=== PATIENT | female | born 1975 | race African-American/Black ===

== ENCOUNTER 2017-01-31 08:01 | Emergency (ER) | payer MEDICAID, OTHER ==
[~2017-01-31] VITALS: Ht 167.6 cm; Wt 99.8 kg
[~2017-01-31 08:01] MED LIST: NKM; PROTONIX40 MG ORAL
[2017-01-31 08:31] VITALS: BP 153/90
--- NOTE | 2017-01-31 08:41 | Emergency Room Report ---
History of Present Illness General Chief Complaint: Pain Source: Patient Present Illness HPI [id number] with 2 months foot pain. Pain to balls of foot, worse with standing, walking. Works on her feet all day No actual trauma to feet/ankles Has been diagnosed previously with lymphadema Denies fever/chills Denies calf pain/swelling Allergies: Coded Allergies: No Known Allergies (Unverified , 03/27/12) Patient History Past Medical History: other - lymphadema Past Surgical History: none Pertinent Family History: none Social History: Denies: alcohol use, drug use, smoking Now: No Immunizations: UTD Reviewed Nursing Documentation: PMH: Agreed, PSxH: Agreed Nursing Documentation-PMH Past Medical History: No Stated History Review of Systems All Other Systems: negative except mentioned in HPI Physical Exam Vital Signs Date Time Temp Pulse Resp B/P Pulse Ox O2 Delivery O2 Flow Rate FiO2 01/31/17 08:08 98.1 88 20 153/90 100 Room Air Sp02 EP Interpretation: reviewed, normal General Appearance: normal inspection, well appearing, no apparent distress, alert, GCS 15, non-toxic Head: normocephalic, atraumatic Eyes: bilateral eye EOMI, bilateral eye PERRL ENT: normal ENT inspection, hearing grossly normal, normal voice Neck: normal inspection, full range of motion, supple, no bony tend Respiratory: normal inspection, lungs clear, normal breath sounds, no respiratory distress, no retraction, no wheezing Cardiovascular #1: regular rate, rhythm, no edema Genitourinary: no CVA tenderness Musculoskeletal: normal inspection, back normal, normal range of motion, Senthil' s Sign negative, other - Bilateral feet: mild non-pititng edema. Tttp bilaterally to balls of feet. No warmth or erythema Neurologic: normal inspection, alert, oriented x3, responsive, pony edger III-XII nml as tested, motor strength/tone normal, speech normal Psychiatric: normal inspection, judgement/insight normal, mood/affect normal Skin: normal inspection, normal color, no rash Medical Decision Making Diagnostic Impression: Primary Impression: Bilateral foot pain ER Course 2 months duration VSS. Afebrile. Atraumatic No calf ttp - low suspicion for DVT No cellulitis Stress fx vs plantar fasciitis? Xrays: No acute fx or spurs Has Podiatry appointment in 5 days DC home RICE Other X-Ray Diagnostic Results Other X-Ray Diagnostic Results : X-Ray ordered: Right foot # of Views/Limited Vs Complete: 3 View Indication: Pain EP Interpretation: Yes Interpretation: no dislocation, no soft tissue swelling, no fractures Impression: No acute disease Interpreting ER Provider: Electronically signed by Dr Sierra PA Scribe Text Left foot 3 views ED review No acute fx, dislocation or soft tissue swelling Last Vital Signs Date Time Temp Pulse Resp B/P Pulse Ox O2 Delivery O2 Flow Rate FiO2 01/31/17 08:31 98.1 88 20 153/90 100 Room Air Status: improved Disposition: HOME, SELF-CARE Referrals: [facility],REFERRING (PCP) YAZ SIERRA M.D. Jan 31, 2017 08:41
[2017-01-31 09:46] VITALS: BP 146/85
[2017-01-31 09:50] VITALS: BP 146/85
--- NOTE | 2017-02-01 09:45 | Diagnostic Imaging Report ---
Indication: PAIN Technique: 3 views right foot Comparison: none Findings: There is mild metatarsus adductus. No acute fractures. No dislocations. There is mild pes cavus deformity. Impression: Negative This agrees with the preliminary interpretation provided by the emergency room physician
--- NOTE | 2017-02-01 09:46 | Diagnostic Imaging Report ---
Indication: PAIN Technique: 3 views left foot Comparison: none Findings: No acute fractures. No dislocations. The joint spaces are preserved. There is a small calcaneal spur Impression: Negative
== END 2017-01-31 09:51 | disposition home or self-care (01) ==
LOC: EMR 08:31
DX: M79.672 Pain in left foot (principal); M79.671 Pain in right foot
CPT/HCPCS: 99283

== ENCOUNTER 2018-09-11 22:38 | Emergency (ER) | payer OTHER ==
[~2018-09-11] VITALS: Ht 193 cm; Wt 104.3 kg
[2018-09-11 23:12] VITALS: BP 117/71
--- NOTE | 2018-09-11 23:13 | NUR ---
ED Nurse Note: Urine sample collected and sent to lab.
--- NOTE | 2018-09-11 23:13 | NUR ---
ED Nurse Note: Patient presents to ED c/o vaginal burning and burning sensation during urination for 2 weeks. Patient reports 8/10 pain. Patient AOx4, VSS, ambulatory with steady gait, no s/s of acute distress noted at this time. Patient seen by MAIRA at bedside.
[2018-09-11 23:57] LABS: APPEARANCE,URINE CLEAR; BILIRUBIN, URINE NEGATIVE (NEGATIVE); COLOR,URINE PALE YELLOW; GLUCOSE, URINE (UA) NEGATIVE (NEGATIVE); KETONES,URINE NEGATIVE (NEGATIVE); LEUKOCYTE ESTERASE ,URINE 2+ (NEGATIVE); NITRITE,URINE NEGATIVE (NEGATIVE); PH,URINE 5 (4.5-8.0); PROTEIN,URINE NEGATIVE (NEGATIVE); UROBILINOGEN,URINE NORMAL MG/DL (0.0-1.0)
[2018-09-12] MEDS ORDERED: metroNIDAZOLE 500mg tab ORAL ONE (00:45)
--- NOTE | 2018-09-12 01:38 | Emergency Room Report ---
History of Present Illness General Chief Complaint: Female Urogenital Problems Source: Patient Present Illness HPI Patient presents with vaginal irritation and discharge. She denies dysuria. She does not think she is . Has had this problem in the past. She rates the pain 8/10. Of fevers, chills, nausea, vomiting, diarrhea no joint pain headache or rashes. Allergies: Coded Allergies: No Known Allergies (Unverified , 03/27/12) Patient History Past Medical History: see triage record Social History: Reports: smoking Social History Narrative Caregiver Last Menstrual Period: Sep 07 2018 Now: No Reviewed Nursing Documentation: PMH: Agreed; PSxH: Agreed Nursing Documentation-PMH Hx Hypertension: Yes Review of Systems All Other Systems: negative except mentioned in HPI Physical Exam Vital Signs Date Time Temp Pulse Resp B/P (MAP) Pulse Ox O2 Delivery O2 Flow Rate FiO2 09/11/18 22:49 98.2 86 19 117/71 95 Room Air Sp02 EP Interpretation: reviewed, normal General Appearance: well appearing, no apparent distress Head: normocephalic, atraumatic Eyes: bilateral eye normal inspection, bilateral eye PERRL ENT: hearing grossly normal, normal voice, moist mucus membranes Neck: full range of motion, supple Respiratory: lungs clear, no respiratory distress, speaking full sentences Cardiovascular #1: normal peripheral pulses, regular rate, rhythm Cardiovascular #2: 2+ radial (R) Gastrointestinal: non tender, soft, overweight Genitourinary: no CVA tenderness, other - Michael discharge present Musculoskeletal: digits/nails normal, gait/station normal, normal range of motion Neurologic: alert, normal gait, grossly normal Psychiatric: mood/affect normal Skin: no rash Medical Decision Making Diagnostic Impression: Primary Impression: Trichomonal infection Additional Impression: UTI (urinary tract infection) Qualified Codes: N30.00 - Acute cystitis without hematuria ER Course Patient presents with vaginal discharge. Differential includes bacterial vaginosis, urinary tract infection amongst others. Wet mount is sent along with urinalysis Urinalysis with pyuria and trichomonas. Flagyl and Macrobid were given. Discussed with patient her significant other might need treatment also. Patient stable for outpatient observation and treatment. Laboratory Tests Test 09/11/18 23:05 Urine Color Pale yellow Urine Appearance Clear Urine pH 5 (4.5-8.0) Urine Specific [place] 1.015 (1.005-1.035) Urine Protein Negative (NEGATIVE) Urine Glucose (UA) Negative (NEGATIVE) Urine Ketones Negative (NEGATIVE) Urine Blood 1+ (NEGATIVE) H Urine Nitrite Negative (NEGATIVE) Urine Bilirubin Negative (NEGATIVE) Urine Urobilinogen Normal MG/DL (0.0-1.0) Urine Leukocyte Esterase 2+ (NEGATIVE) H Urine RBC 10-15 /HPF (0 - 2) H Urine WBC 10-15 /HPF (0 - 2) H Urine Squamous Epithelial Cells Many /LPF (NONE/OCC) H Urine Bacteria Moderate /HPF (NONE) H Urine Trichomonas Moderate /HPF (NONE) H Urine HCG, Qualitative Negative (NEGATIVE) Microbiology Date/Time Source Procedure Growth Status 09/12/18 00:30 Vaginal Wet Prep - Final Complete Last Vital Signs Date Time Temp Pulse Resp B/P (MAP) Pulse Ox O2 Delivery O2 Flow Rate FiO2 09/12/18 01:53 98.2 81 26 124/74 97 Room Air Status: improved Disposition: HOME, SELF-CARE Condition: Improved Scripts Nitrofurantoin Monohyd/M-Cryst* (MACROBID 100 MG*) 100 Mg Capsule 100 MG ORAL EVERY 12 HOURS, #14 CAP Prov: Jj Huang MD 09/12/18 Metronidazole* (FLAGYL*) 500 Mg Tablet 500 MG ORAL EVERY 8 HOURS, #20 TAB Prov: Jj Huang MD 09/12/18 Referrals: [facility]/,REFERRING (PCP) Jj Huang MD Sep 12, 2018 01:38
[2018-09-12] MEDS ORDERED: NITROFURANTOIN100 M2 ORAL (01:40)
[2018-09-12] MEDS ORDERED: FLAGYL500 MG ORAL (01:40)
[2018-09-12 01:49] VITALS: BP 124/74
--- NOTE | 2018-09-12 01:50 | NUR ---
ED Nurse Note: Patient cleared for discharge by ERMDamian. Patient AOx4, VSS, ambulatory with steady gait, no s/s of acute distress noted at this time. patient provided with discharge instructions and medication prescriptions. patient verbalized understanding. patient took all personal belongings with her. Patient stated she was driving herself home. patient instructed to follow up with OBGYN in 3 to 5 days.
[2018-09-12 01:53] VITALS: BP 124/74
== END 2018-09-12 01:54 | disposition home or self-care (01) ==
LOC: EMR 23:05
DX: A59.9 Trichomoniasis, unspecified (principal); N39.0 Urinary tract infection, site not specified; I10 Essential (primary) hypertension
CPT/HCPCS: 81003; 81025; 87086; 87210; 99283

== ENCOUNTER 2019-06-06 13:36 | Emergency (ER) | payer OTHER ==
[~2019-06-06] VITALS: Ht 182.9 cm; Wt 104.3 kg
[~2019-06-06 13:36] MED LIST changes: +FLAGYL500 MG ORAL; +NITROFURANTOIN100 M2 ORAL
[2019-06-06] MEDS ORDERED: VOLTAREN100 G1 TP (14:51)
[2019-06-06] MEDS ORDERED: IBU800 MG PO (14:51)
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
[2019-06-06] MEDS ORDERED: TRIAMCINOLONE A15 G1 TP (14:54)
[2019-06-06] MEDS ORDERED: CLOTRIMAZOLE30 GM TP (14:54)
[2019-06-06 14:59] VITALS: BP 128/80
[2019-06-06 15:03] VITALS: BP 125/85
--- NOTE | 2019-06-06 15:15 | Diagnostic Imaging Report ---
Indication: Trauma, pain Technique: 3 views of the right knee Comparison: None Findings: Bony alignment is normal. There are medial patellofemoral osteophytes. No acute fractures. No dislocations. No suprapatellar effusion Impression: No acute bony trauma
--- NOTE | 2019-06-06 15:46 | Diagnostic Imaging Report ---
Indication: Right leg pain Technique: Grayscale and duplex images of the right lower extremity veins Comparison: 06/17/2012 Findings: On the right, grayscale and duplex images demonstrate no evidence of intraluminal thrombus. Normal phasic Doppler waveforms, demonstrating normal augmentation response and no evidence of valvular insufficiency. Normal compressibility. No significant change Impression: Negative for evidence of right lower extremity deep venous thrombosis
== END 2019-06-06 15:03 | disposition home or self-care (01) ==
LOC: EMR 14:30
DX: S83.91XA Sprain of unspecified site of right knee, initial encounter (principal); L25.9 Unspecified contact dermatitis, unspecified cause; B36.9 Superficial mycosis, unspecified; I10 Essential (primary) hypertension; W22.8XXA Striking against or struck by other objects, initial encounter; Y93.89 Activity, other specified; Y92.810 Car as the place of occurrence of the external cause; Z86.718 Personal history of other venous thrombosis and embolism
CPT/HCPCS: 29505; 93971; 99284